=== PATIENT | male | born 1955 | race Caucasian/White ===

== ENCOUNTER 2021-06-15 10:25 | Inpatient (IN) ==
[2021-06-15] MEDS ORDERED: Ipratropium/Albuterol Neb 3 ML IH ONE (10:35)
[2021-06-15] MEDS ORDERED: Azithromycin 500 MG TABLET PO ONE (10:35)
[2021-06-15] MEDS: 0.9 % Sodium Chloride 1,000 ML IVC SCH ×2 (10:47→22:17)
[2021-06-15] MEDS ORDERED: Azithromycin 250 MG TABLET PO ONE (11:00)
[2021-06-15 11:15] LABS: Basophils # 0.1 K/mcL (0.0-0.2); Basophils % 0.4 %; Eosinophils % 0.2 %; Hematocrit 43.6 % (37.5-50.1); Hemoglobin 14.8 g/dL (12.9-16.9); Immature Granulocytes % 1.6 % (0-4); Lymphocytes # 0.8 K/mcL (0.6-4.6); Lymphocytes % 5.7 %; Mean Corpuscular HGB Conc 33.9 g/dL (31.6-35.5); Mean Corpuscular Hemoglobin 30.1 pg (28.0-33.3); Mean Corpuscular Volume 88.8 fL (83.0-100.0); Mean Platelet Volume 8.5 fL (9.4-12.4); Monocytes % 7.4 %; Neutrophils # 11.1 K/mcL (1.6-8.9); Platelet Count 361 K/mcL (140-400); Red Blood Count 4.91 M/mcL (4.19-5.50); Red Cell Distribution Width 12.1 % (11.5-14.5); Segmented Neutrophils % 84.7 %; White Blood Count 13.1 K/mcL (4.3-11.1)
[2021-06-15] MEDS ORDERED: Isovue-370 500 ML BOTTLE IVP ONE (11:15)
[2021-06-15 11:25] LABS: INR 1.1; Prothrombin Time 13.1 Seconds (9.4-12.1)
[2021-06-15 11:27] LABS: Activated Partial Thrombo Time 29.6 Seconds (26.0-36.0)
[2021-06-15 11:35] LABS: Alanine Aminotransferase 23 Units/L (7-52); Albumin/Globulin Ratio 1.1 (1.1-2.2); Alkaline Phosphatase 64 Units/L (34-104); Aspartate Amino Transferase 24 Units/L (13-39); BUN/Creatinine Ratio 17 (6-26); Bilirubin,Direct 0.1 mg/dL (0.0-0.2); Bilirubin,Indirect 0.9 mg/dL (0.0-1.0); Blood Urea Nitrogen 15 mg/dL (8-23); Calcium 9.3 mg/dL (8.6-10.3); Carbon Dioxide 23 mEq/L (23-29); Chloride 101 mEq/L (98-107); Globulin 3.6 g/dL (2.4-3.5); Glucose 115 mg/dL (70-105); Lactate Dehydrogenase 326 Units/L (140-271); Magnesium 2.1 mg/dL (1.6-2.6); Osmolality,Calculated 282 (280-300); Phosphorous 2.8 mg/dL (2.7-4.5); Potassium 4.4 mEq/L (3.5-5.1); Sodium 135 mEq/L (136-145); Total Protein 7.6 g/dL (6.4-8.9); eGFR For African Americans > 60 (> 60); eGFR For Non-African Americans > 60 (> 60)
[2021-06-15 11:52] LABS: Ferritin 1358 ng/mL (20-250)
[2021-06-15 12:08] LABS: Influenza A PCR Negative (Negative); Influenza B PCR Negative (Negative); Resp. Syncytial Virus PCR Negative (Negative)
[2021-06-15] MEDS ORDERED: *HR* Heparin 5,000 UNIT/ML VIAL IVP ONE (12:09)
[2021-06-15] MEDS ORDERED: *HR* Heparin 5,000 UNIT/ML VIAL IVP PRN ×2 (12:09)
[2021-06-15 12:10] LABS: Troponin I 0.03 ng/mL (< 0.04)
[2021-06-15 12:11] LABS: SARS-CoV-2 by PCR (In House) Positive (Negative)
[2021-06-15] MEDS: Heparin 25,000UNIT/250ML 1/2NS 25,000 UNIT/250 ML IV.SOLN IVC SCH (12:39)
[2021-06-15 14:29] LABS: C-Reactive Protein 28 mg/L (Less than 10)
[2021-06-15] MEDS ORDERED: Perflutren Lipid Microsphere 1.3 ML in 0.9 % Sodium Chloride 8.7 ML IVP PRN (16:46)
[2021-06-15] MEDS ORDERED: Acetaminophen 325 MG TABLET PO PRN (16:53)
[2021-06-15] MEDS ORDERED: Ondansetron 4 MG/2 ML VIAL IVP PRN (16:53)
[2021-06-15] MEDS ORDERED: Melatonin 3 MG TABLET PO PRN (16:53)
[2021-06-15] MEDS ORDERED: Naloxone 0.4 MG/ML INJ IVP PRN (16:53)
[2021-06-15] MEDS: Dexamethasone Sodium Phos/PF 10 MG/ML VIAL IVP SCH (18:11)
[2021-06-16 05:33] LABS: Hematocrit 40.7 % (37.5-50.1); Mean Corpuscular HGB Conc 34.4 g/dL (31.6-35.5); Mean Corpuscular Volume 87.2 fL (83.0-100.0); Mean Platelet Volume 8.6 fL (9.4-12.4); Platelet Count 294 K/mcL (140-400); Red Blood Count 4.67 M/mcL (4.19-5.50); Red Cell Distribution Width 12.1 % (11.5-14.5); White Blood Count 12.6 K/mcL (4.3-11.1)
[2021-06-16 05:57] LABS: Alanine Aminotransferase 25 Units/L (7-52); Albumin 3.5 g/dL (3.5-5.7); Albumin/Globulin Ratio 1.1 (1.1-2.2); Alkaline Phosphatase 54 Units/L (34-104); Aspartate Amino Transferase 26 Units/L (13-39); BUN/Creatinine Ratio 16 (6-26); Bilirubin,Total 0.8 mg/dL (0.3-1.0); Blood Urea Nitrogen 13 mg/dL (8-23); Calcium 8.8 mg/dL (8.6-10.3); Carbon Dioxide 23 mEq/L (23-29); Chloride 105 mEq/L (98-107); Globulin 3.1 g/dL (2.4-3.5); Glucose 143 mg/dL (70-105); Magnesium 2.1 mg/dL (1.6-2.6); Osmolality,Calculated 285 (280-300); Phosphorous 2.4 mg/dL (2.7-4.5); Potassium 4.7 mEq/L (3.5-5.1); Sodium 136 mEq/L (136-145); Total Protein 6.6 g/dL (6.4-8.9); Troponin I < 0.03 ng/mL (< 0.04); eGFR For African Americans > 60 (> 60); eGFR For Non-African Americans > 60 (> 60)
[2021-06-16] MEDS: Heparin 25,000UNIT/250ML 1/2NS 25,000 UNIT/250 ML IV.SOLN IVC SCH (05:58)
[2021-06-16] MEDS: 0.9 % Sodium Chloride 1,000 ML IVC SCH ×2 (08:28→18:37)
[2021-06-16] MEDS: Azithromycin 250 MG TABLET PO SCH (08:30)
[2021-06-16] MEDS: Finasteride 5 MG TABLET PO SCH (08:30)
[2021-06-16] MEDS: Dexamethasone Sodium Phos/PF 10 MG/ML VIAL IVP SCH (08:31)
[2021-06-17] MEDS: Heparin 25,000UNIT/250ML 1/2NS 25,000 UNIT/250 ML IV.SOLN IVC SCH ×2 (01:27→21:58)
[2021-06-17 02:31] LABS: Hematocrit 40.6 % (37.5-50.1); Hemoglobin 13.5 g/dL (12.9-16.9); Mean Corpuscular HGB Conc 33.3 g/dL (31.6-35.5); Mean Corpuscular Hemoglobin 29.4 pg (28.0-33.3); Mean Corpuscular Volume 88.5 fL (83.0-100.0); Mean Platelet Volume 8.4 fL (9.4-12.4); Platelet Count 266 K/mcL (140-400); Red Blood Count 4.59 M/mcL (4.19-5.50); Red Cell Distribution Width 12.2 % (11.5-14.5)
[2021-06-17 02:50] LABS: BUN/Creatinine Ratio 20 (6-26); Blood Urea Nitrogen 17 mg/dL (8-23); Calcium 8.6 mg/dL (8.6-10.3); Carbon Dioxide 25 mEq/L (23-29); Chloride 106 mEq/L (98-107); Glucose 117 mg/dL (70-105); Osmolality,Calculated 287 (280-300); Potassium 4.5 mEq/L (3.5-5.1); Sodium 137 mEq/L (136-145); eGFR For African Americans > 60 (> 60); eGFR For Non-African Americans > 60 (> 60)
[2021-06-17] MEDS: 0.9 % Sodium Chloride 1,000 ML IVC SCH ×2 (04:40→15:11)
[2021-06-17] MEDS: Finasteride 5 MG TABLET PO SCH (09:12)
[2021-06-17] MEDS: Dexamethasone Sodium Phos/PF 10 MG/ML VIAL IVP SCH (09:12)
[2021-06-17] MEDS: Azithromycin 250 MG TABLET PO SCH (09:12)
[2021-06-18] MEDS: 0.9 % Sodium Chloride 1,000 ML IVC SCH (01:15)
[2021-06-18 08:14] VITALS: BP 132/87; PULSE 71; TEMP 97.9; O2SAT 94
[2021-06-18] MEDS: Azithromycin 250 MG TABLET PO SCH (08:15)
[2021-06-18] MEDS: Dexamethasone Sodium Phos/PF 10 MG/ML VIAL IVP SCH (08:15)
[2021-06-18] MEDS: Finasteride 5 MG TABLET PO SCH (08:15)
[2021-06-18] MEDS ORDERED: *HR* Rivaroxaban 15 MG TABLET PO SCH (09:00)
== END 2021-06-18 11:29 | disposition home or self-care (01) | DRG 177 ==
LOC: 3BNU 10:25 → EMEROOARM 10:25 → SUATTDRO 13:13 → 3BNU 14:46
PROVIDERS: ADMIT Internal Medicine; ATTEND Internal Medicine